=== PATIENT | male | born 2000 | race Hispanic/Latino ===

== ENCOUNTER 2024-05-28 06:36 | Emergency (ER) | payer OTHER, SELFPAY ==
--- OUTSIDE RECORDS SUMMARY | 2024-05-28 06:39 | XMS REPORT | Continuity of Care Document ---
Author Name Unknown Address [address] [facility] [address] [place] [address] [facility] Address [address] [facility] [address] [place] [address] Care Team Providers [employer] Cook Head Name Role Phone Guanako GAN, Ivy Primary Care Physician SONYA REYNA Attending Clinician Unavailable Sonya Reyna MD Attending Clinician [phone] Team, [facility] Health Maintenance Attending Clinicia n Unavailable Payers Payer Name Policy Type Policy Number Effective Date Expirati on Date Source [facility] [id number] 2019 00:00:00 Problems Condition Name Condition Details Condition Category Status Onset Date Resolution Date Last Treatment Date Treating Clinician Comments Source No known active problems No known active problems Disease [facility] Allergies, Adverse Reactions, Alerts Allergy Name Allergy Type Status Severity Reaction(s) Onset Date Inactive Date Treating Clinician Comments Source NO KNOWN ALLERGIE S Drug Class Active [facility] Social History Social Habit Start Date Stop Date Quantity Comments Source Sexual orientation [facility] Sex Assigned At 2000 00:00:00 2000 00:00:00 [facility] Smoking Status Start Date Stop Date Source Tobacco smoking consumption unknown [facility] Medications Ordered Medication Name Filled Medication Name Start Date Stop Date Current Medication? Ordering Clinician Indication Dosage Frequency Signature (SIG) Comments Components Source amoxicillin 500 mg capsule 01-29 00:00: 00 Yes 1mg Eduard Abraham ranitidine (ZANTAC) 150 mg tablet 2018-08 00:00: 00 Yes [id number] 150mg Take 1 tablet by mouth 2 (two) times daily. Follow up with your MD for further evaluation and treatment. [facility] ondansetron (ZOFRAN ODT) 4 mg disintegrat ing tablet 2018-08 00:00: 00 Yes [id number] 4mg Take 1 tablet by mouth every 8 (eight) hours as needed for Nausea and Vomiting (N/V). [facility] traMADol (ULTRAM) 50 mg tablet 2018-08 00:00: 00 Yes [id number] 50mg Take 1 tablet by mouth every 8 (eight) hours as needed for Pain (scale 4-6). [facility] ondansetron (ZOFRAN ODT) 4 mg disintegrat ing tablet 09-24 00:00: 00 Yes [id number] 4mg Take 1 tablet by mouth every 8 (eight) hours as needed for Nausea and Vomiting (N/V). [facility] oxymetazoli ne 0.05 % nasal spray 08-15 00:00: 00 Yes 1{spray } Use 1 Stearns in each nostril 2 (two) times daily. DISCARD AFTER 3 DAYS. USE MAY BE ADDICTIVE AFTER 4 DAYS USE. [facility] triamcinolo ne acetonide (TRIDERM) 0.1 % cream 02-14 00:00: 00 Yes Apply to area(s) 3 (three) times daily. [facility] albuterol (PROVENTIL) 5 mg/mL nebulizer solution 09-26 17:35: 37 Yes 2.5mg Inhale 2.5 mg every 4 (four) hours as needed for Wheezing or Shortness of Breath. [facility] LEVALBUTERO L HCL (XOPENEX INHALE) 09-26 17:35: 37 Yes Inhale. [facility] MONTELUKAST SODIUM (SINGULAIR ORAL) 09-26 17:35: 37 Yes Take by mouth. [facility] albuterol (PROVENTIL) 5 mg/mL nebulizer solution 09-26 11:35: 37 Yes 2.5mg Inhale 2.5 mg every 4 (four) hours as needed for Wheezing or Shortness of Breath. [facility] LEVALBUTERO L HCL (XOPENEX INHALE) 09-26 11:35: 37 Yes Inhale. [facility] MONTELUKAST SODIUM (SINGULAIR ORAL) 09-26 11:35: 37 Yes Take by mouth. [facility] Immunizations Ordered Immunization Name Filled Immunization Name Date Status Comments Source meningococcal MCV4P meningococcal MCV4P 00:00:00 Completed Eduard Abraham Tdap Tdap 2014-04-02 00:00:00 Completed Eduard Abraham DTaP DTaP 2002 00:00:00 Completed Eduard Abraham Hep B, adolescent or ped Hep B, adolescent or ped 2002 00:00:00 Completed Eduard Abraham Hib (PRP-OMP) Hib (PRP-OMP) 2002 00:00:00 Completed Eduard Abraham Pneumococcal conjugate P Pneumococcal conjugate P 2002 00:00:00 Completed Eduard Abraham IPV IPV 2002 00:00:00 Completed Eduard Abraham Hep B, adolescent or ped Hep B, adolescent or ped 2002 00:00:00 Completed Eduard Abraham Vital Signs Vital Name Observation Time Observation Value Comments S ource BP Systolic 2024-02-06 13:10:00 Joo Abraham BP Diastolic 2024-02-06 13:10:00 [facility] Abraham Weight Measured 2024-02-06 13:10:00 Eduard Abraham Height Measured 2024-02-06 13:10:00 Eduard Abraham Body Temperature 2024-02-06 13:10:00 Eduard Abraham Heart Rate 2024-02-06 13:10:00 Karen Abraham Respiratory Rate 2024-02-06 13:10:00 Eduard Abraham Respiratory Rate 2024-01-30 16:56:00 18.00 /min Eduard Abraham BP Systolic 2024-01-30 16:56:00 120 mm[Hg] Joo Abraham BP Diastolic 2024-01-30 16:56:00 100 mm[Hg] [facility] phen Michael Abraham Weight Measured 2024-01-30 16:56:00 155.00 pounds Eduard Abraham Height Measured 2024-01-30 16:56:00 65.50 inches Eduard Michael Abraham Body Temperature 2024-01-30 16:56:00 99.10 degrees Eduard Abraham Heart Rate 2024-01-30 16:56:00 74.00 /min Karne en Michael Abraham BP Systolic 2018-09-19 17:12:00 116 mm[Hg] Step hen Michael Abraham BP Diastolic 2018-09-19 17:12:00 77 mm[Hg] [facility]is phen Michael Abraham Weight Measured 2018-09-19 17:12:00 146.20 pounds Eduard Abraham Height Measured 2018-09-19 17:12:00 65.50 inches Eduard Abraham Body Temperature 2018-09-19 17:12:00 98.40 degrees Eduard Abraham Heart Rate 2018-09-19 17:12:00 68.00 /min Karen en Michael Abraham Respiratory Rate 2018-09-19 17:12:00 16.00 /min Eduard Abraham Encounters Start Date/Time End Date/Time Encounter Type Admission Type Attending [facility] Care Department Encounter ID Source 2024-02-06 00:00:00 2024-02-06 00:00:00 Outpatient Visit [facility] [id number] Eduard Abraham 2024-01-30 16:45:34 2024-01-30 16:45:34 Outpatient [facility] [id number] Eduard Abraham 2024-01-30 00:00:00 2024-01-30 00:00:00 Outpatient Visit [facility] [id number] Eduard Abraham 2023-07-18 23:46:00 2023-07-18 23:47:00 Emergency X SONYA REYNA [facility] [id number] [facility] 2023-07-18 23:46:00 2023-07-18 23:47:00 Emergency Sonya Reyna [facility] [id number] [facility] 2019-04-25 00:00:00 2019-04-25 00:00:00 Telephone Team, [facility] [id number] [facility] Notes Date/Time Note Provider Source Eduard Mckeon [facility]2024-06-18 00:00:00 Eduard Jeff [facility]
[2024-05-28] MEDS ORDERED: KETOROLAC 30 MG/ML INJ ONE (07:37)
[2024-05-28 07:40] LABS: Absolute Eosinophils 0.5 K/uL (0-0.5); Absolute Lymphocytes (CBC) 1.3 K/uL (0.7-4.9); Absolute Monocytes 0.9 K/uL (0.1-1.3); Absolute Neutrophil 5.4 K/uL (1.8-8.0); Basophils % 0.4 % (0-1.3); Eosinophils % 5.8 % (0-4.4); Hematocrit 42.2 % (39.6-49.0); Hemoglobin 13.8 g/dL (13.6-17.9); Lymphocytes % 15.9 % (15.3-44.8); MCH 26.7 pg (27.0-35.0); MCHC 32.8 g/dL (32.0-36.0); MCV 81.6 fL (80-100); MPV 8.4 fL (7.6-11.3); Monocytes % 10.7 % (3.3-12.3); Neutrophils % 67.2 % (41.7-73.7); Nucleated RBC Absolute Count 0.1 (0-0); Nucleated Red Blood Cells % 0.9 % (0-0); Platelets 216 thou/uL (152-406); RBC Red Blood Cell Count 5.17 M/uL (4.33-5.43); Red Cell Distribution Width 13.7 % (12.1-15.2)
[2024-05-28 07:51] LABS: ALT/SGPT 21 U/L (16-61); AST/SGOT 16 U/L (15-37); Albumin 3.8 g/dL (3.4-5.0); Albumin/Globulin Ratio 1.1 (1.1-1.8); Alkaline Phosphatase 90 U/L (45-117); Anion Gap 6.9 mEq/L (5.0-15.0); BUN Blood Urea Nitrogen 17 mg/dL (7-18); Bicarbonate 28 mEq/L (21-32); Bilirubin Direct 0.2 mg/dL (0-0.2); Bilirubin Indirect, Calculated 0.7 mg/dL (0.2-0.8); Bilirubin Total 0.9 mg/dL (0.2-1.0); Globulin 3.5 g/dL (2.3-3.5); Glomerular Filtration Rate 121 ml/min (=/>90); Glucose Level 93 mg/dL (74-106); Potassium 3.9 mEq/L (3.5-5.1); Protein, Total 7.3 g/dL (6.4-8.2); Sodium Level 138 mEq/L (136-145)
[2024-05-28 07:54] LABS: Troponin High Sensitivity < 3.0 pg/mL (<58.9)
--- NOTE | 2024-05-28 08:09 | RAD REPORT ---
Procedure: Chest Single View HISTORY: Chest pain COMPARISON: 2007 FINDINGS: The lungs appear clear of acute infiltrate. No significant pleural effusion noted. The heart is normal size. IMPRESSION: No acute abnormality is displayed.
[2024-05-28 08:28] LABS: Blood Morphology Comment NOT SEEN (NOT SEEN); Platelet Estimate ADEQ; White Blood Cell Scan OK (OK)
--- NOTE | 2024-05-28 08:59 | EDPHYS ---
Physician Documentation [facility] Name: Terry Garner Age: 24 yrs Sex: Male : 2000 Arrival Date: 05/28/2024 Time: 06:36 Bed 20 Private MD: ED Physician Hernandez De Santiago HPI: 05/28 09:26 This 24 yrs old Male presents to ER via Ambulatory with complaints of Chest rt Pain, Chest Tightness. 09:26 Patient presents to the ED with a chest pain for 2 days. Patient states that is worse rt when he moves. Worse with deep inspiration. Denies exertional component. Denies other acute complaints at this time, symptoms are mild in severity, no other aggravating or alleviating factors. Historical: - Allergies: 07:14 No Known Allergies; ap3 - Home Meds: 07:14 None [Active]; ap3 - PMHx: 07:14 Asthma; ap3 - Immunization history:: Client reports having NOT received the Covid vaccine. - Infectious Disease History:: Denies. - Social history:: Smoking status: Patient/guardian denies using tobacco. - Family history:: not pertinent. ROS: 09:26 Constitutional: Negative for fever, chills, and weight loss, Respiratory: Negative for rt shortness of breath, cough, wheezing, and pleuritic chest pain, Abdomen/GI: Negative for abdominal pain, nausea, vomiting, diarrhea, and constipation, MS/Extremity: Negative for injury and deformity, Skin: Negative for injury, rash, and discoloration, Neuro: Negative for headache, weakness, numbness, tingling, and seizure, 09:26 Cardiovascular: Positive for chest pain, Negative for edema, Exam: 09:26 Constitutional: This is a well developed, well nourished patient who is awake, alert, rt and in no acute distress. Head/Face: Normocephalic, atraumatic. Chest/axilla: Normal chest wall appearance and motion. Nontender with no deformity. No lesions are appreciated. Cardiovascular: Regular rate and rhythm with a normal S1 and S2. No gallops, murmurs, or rubs. Normal PMI, no JVD. No pulse deficits. Respiratory: Lungs have equal breath sounds bilaterally, clear to auscultation and percussion. No rales, rhonchi or wheezes noted. No increased work of breathing, no retractions or nasal flaring. Abdomen/GI: Soft, non-tender, with normal bowel sounds. No distension or tympany. No guarding or rebound. No evidence of tenderness throughout. Skin: Warm, dry with normal turgor. Normal color with no rashes, no lesions, and no evidence of cellulitis. MS/ Extremity: Pulses equal, no cyanosis. Neurovascular intact. Full, normal range of motion. Neuro: Awake and alert, GCS 15, oriented to person, place, time, and situation. Cranial nerves II-XII grossly intact. Motor strength 5/5 in all extremities. Sensory grossly intact. Cerebellar exam normal. Normal gait. 09:26 ECG was reviewed by the Attending Physician. Vital Signs: 07:12 BP 125 / 75; Pulse 72; Resp 17; Temp 98.8; Pulse Ox 100% ; Weight 68.04 kg; Pain 8/10; ap3 09:02 BP 112 / 69; Pulse 87; Resp 17; Temp 98.6; Pulse Ox 100% on R/A; ap3 07:12 Pain Scale: Adult ap3 MDM: 07:06 Medical Screening Exam initiated rt 09:26 Differential diagnosis: Chest wall pain, pneumonia, pneumothorax, CAD. HEART Score: rt History: Slightly Suspicious (0), ECG: Normal (0), Age: < or = 45 years (0), Risk Factors: No Risk Factors Known (0), Troponin: < or = 1 x Normal Limit (0), Total Score = 0. Data reviewed: vital signs, nurses notes, lab test result(s), EKG, radiologic studies. Consideration of Admission/Observation Escalation of care including admission/observation considered. Symptoms improving with Toradol, suspect of chest wall pain. Low heart score, no risk factors, given chronicity of symptoms, 1 set of enzymes is sufficient to rule out acute coronary syndrome.. I considered the following discharge prescriptions or medication management in the emergency department Medications were administered in the Emergency Department. See MAR. Independent interpretation of the following test(s) in the Emergency Department X-Ray: My interpretation is No consolidation seen on interpretation of x-ray images. Test considered but Not performed: CT: Low suspicion for PE, PE RC negative, CT angiogram not indicated to rule out pulmonary embolus. Counseling: I had a detailed discussion with the patient and/or guardian regarding the historical points, exam findings, and any diagnostic results supporting the discharge/admit diagnosis, lab results, radiology results, the need for outpatient follow up, to return to the emergency department if symptoms worsen or persist or if there are any questions or concerns that arise at home. Response to treatment: the patient's symptoms have markedly improved after treatment. 05/28 07:15 Order name: Basic Metabolic Panel; Complete Time: 08:10 rt 05/28 07:15 Order name: CBC with Diff; Complete Time: 08:34 rt 05/28 07:15 Order name: LFT's; Complete Time: 08:10 rt 05/28 07:15 Order name: Troponin HS; Complete Time: 08:10 rt 05/28 08:29 Order name: CBC Smear Scan; Complete Time: 08:34 EDMS 05/28 07:15 Order name: XRAY Chest (1 view); Complete Time: 08:10 rt 05/28 07:15 Order name: EKG; Complete Time: 07:16 rt 05/28 07:15 Order name: Cardiac monitoring; Complete Time: 07:17 rt 05/28 07:15 Order name: EKG - Nurse/Tech; Complete Time: 07:17 rt 05/28 07:15 Order name: IV Saline Lock; Complete Time: 07:26 rt 05/28 07:15 Order name: Labs collected and sent; Complete Time: 07:26 rt 05/28 07:15 Order name: O2 Per Protocol; Complete Time: 07:17 rt 05/28 07:15 Order name: O2 Sat Monitoring; Complete Time: 07:17 rt EC:26 Rate is 79 beats/min. Rhythm is regular, Normal Sinus Rhythm with No ectopy. QRS [place] rt is Normal. [place] interval is normal. QRS interval is normal. QT interval is normal. No Q waves. T waves are Normal. No ST changes noted. Interpreted by me. Administered Medications: 07:44 Drug: Ketorolac IVP 15 mg IVP once Route: IVP; Site: right antecubital; ap3 08:58 Follow up: Response: No adverse reaction ap3 Disposition Summary: 05/28/24 08:58 Discharge Ordered Notes: Location: Home rt Problem: new rt Symptoms: have improved rt Condition: Stable rt Diagnosis - Chest pain, unspecified rt Followup: rt - With: Private Physician - When: 2 - 3 days - Reason: Discharge Instructions: - Discharge Summary Sheet rt - Nonspecific Chest Pain, Adult rt Forms: - Work release form iw - Medication Reconciliation Form rt - Antibiotic Education rt - Prescription Opioid Use rt - Patient Portal Instructions rt - Leadership Thank You Letter rt Signatures: Dispatcher [employer] Lulú Neumann RN RN ap3 Hernandez De Santiago MD MD rt
--- NOTE | 2024-05-28 08:59 | ER ---
Nurse's Notes [facility] Name: Terry Garner Age: 24 yrs Sex: Male : 2000 Arrival Date: 05/28/2024 Time: 06:36 Bed 20 Private MD: Diagnosis: Chest pain, unspecified Presentation: 05/28 07:12 Chief complaint: Patient states: he started having chest pain approx 2 night ago, that ap3 is worse at night and improves throughout the day. patient denies any shortness of breath or nausea and vomiting. patient also complains of pain with movement. . patient currently rates his pain as an 8/10 on the pain scale. Coronavirus screen: At this time, the client does not indicate any symptoms associated with coronavirus-19. Ebola Screen: No symptoms or risks identified at this time. Initial Sepsis Screen: Does the patient meet any 2 criteria? No. Patient's initial sepsis screen is negative. Does the patient have a suspected source of infection? No. Patient's initial sepsis screen is negative. Risk Assessment: Do you want to hurt yourself or someone else? Patient reports no desire to harm self or others. Onset of symptoms was May 26, 2024. 07:12 Method Of Arrival: Ambulatory ap3 07:12 Acuity: ALDEN 2 ap3 Triage Assessment: 07:15 General: Appears in no apparent distress. Behavior is calm, cooperative, appropriate ap3 for age. Pain: Complains of pain in chest Pain currently is 8 out of 10 on a pain scale. Pain began 2-3 days ago. Neuro: Level of Consciousness is awake, alert, obeys commands, Oriented to person, place, time, situation, Appropriate for age. Cardiovascular: Reports chest pain, Patient's skin is warm and dry. Respiratory: Airway is patent Respiratory effort is even, unlabored, Respiratory pattern is regular, symmetrical. Historical: - Allergies: 07:14 No Known Allergies; ap3 - Home Meds: 07:14 None [Active]; ap3 - PMHx: 07:14 Asthma; ap3 - Immunization history:: Client reports having NOT received the Covid vaccine. - Infectious Disease History:: Denies. - Social history:: Smoking status: Patient/guardian denies using tobacco. - Family history:: not pertinent. Screenin:15 [facility] ED Fall Risk Assessment (Adult) History of falling in the last 3 months, ap3 including since admission No falls in past 3 months (0 pts) Confusion or Disorientation No (0 pts) Intoxicated or Sedated No (0 pts) Impaired Gait No (0 pts) Mobility Assist Device Used No (0 pt) Altered Elimination No (0 pt) Score/Fall Risk Level 0 - 2 = Low Risk Oriented to surroundings, Maintained a safe environment, Educated pt \T\ family on fall prevention, incl call for assistance when getting out of bed, Assessed \T\ reinforced patient's understanding of fall precautions, Hourly rounding (assess needs \T\ fall precautionary measures) done, Used ambulatory aids as needed (educated on \T\ assisted with), Used gait belt as appropriate. Abuse screen: Denies threats or abuse. Nutritional screening: No deficits noted. Tuberculosis screening: No symptoms or risk factors identified. Assessment: 07:16 Pain: Pain does not radiate. ap3 08:58 Reassessment: Patient and/or family updated on plan of care and expected duration. Pain ap3 level reassessed. Patient is alert, oriented x 3, equal unlabored respirations, skin warm/dry/pink. Vital Signs: 07:12 BP 125 / 75; Pulse 72; Resp 17; Temp 98.8; Pulse Ox 100% ; Weight 68.04 kg; Pain 8/10; ap3 09:02 BP 112 / 69; Pulse 87; Resp 17; Temp 98.6; Pulse Ox 100% on R/A; ap3 07:12 Pain Scale: Adult ap3 ED Course: 06:40 Patient arrived in ED. [email or web address] 06:59 Hernandez De Santiago MD is Attending Physician. rt 07:01 Lulú Rodriguez, RN is Primary Nurse. ap3 07:14 Triage completed. ap3 07:15 Arm band placed on right wrist. ap3 07:15 Patient maintains SpO2 saturation greater than 95% on room air. ap3 07:16 Client placed on continuous cardiac and pulse oximetry monitoring. NIBP monitoring ap3 applied. food supervisor on. Pulse ox on. NIBP on. 07:16 Patient has correct armband on for positive identification. Placed in gown. Bed in low ap3 position. Call light in reach. Side rails up X 1. 07:16 EKG done, by ED staff, reviewed by Hernandez De Santiago MD. ap3 07:27 Inserted saline lock: 20 gauge in right antecubital area, using aseptic technique. ap3 Blood collected. 08:04 XRAY Chest (1 view) In Process Unspecified. EDMS 09:10 No provider procedures requiring assistance completed. IV discontinued, intact, ap3 bleeding controlled, No redness/swelling at site. Pressure dressing applied. 09:11 Provided Education on: discharge instructions. ap3 Administered Medications: 07:44 Drug: Ketorolac IVP 15 mg IVP once Route: IVP; Site: right antecubital; ap3 08:58 Follow up: Response: No adverse reaction ap3 Medication: 09:11 VIS not applicable for this client. ap3 Outcome: 08:58 Discharge ordered by MD. rt 09:11 Discharged to home ambulatory, with family, ap3 09:11 Condition: good 09:11 Discharge instructions given to patient, Instructed on discharge instructions, follow up and referral plans. Demonstrated understanding of instructions, follow-up care, 09:11 Patient left the ED. ap3 Signatures: Dispatcher [employer] EDMS Lulú Rodriguez RN RN ap3 Holley Casey [email or web address] Hernandez De Santiago MD MD rt
[2024-05-28 11:27] VITALS: O2SAT 100
[2024-05-28 11:29] VITALS: BP 125/75; TEMP 98.8
--- NOTE | 2024-05-30 11:58 | EKG ---
Test Date: 2024-05-28 Test Time: 07:10:06 Licensed Embalmer Supervisor: ALP MEASUREMENT RESULTS: Intervals: Rate: 79 UT: 152 QRSD: 86 QT: 350 QTc: 401 [place]: P: 65 UT: 152 QRS: 88 T: 37 INTERPRETIVE STATEMENTS: Normal sinus rhythm with sinus arrhythmia Normal ECG No previous ECG available for comparison Electronically Signed On 05-30-24 11:53:36 CDT by Vipul Ureña
== END 2024-05-28 09:11 | disposition home or self-care (01) ==
LOC: ER 06:36
DX: R07.89 Other chest pain (principal); Z28.310 Unvaccinated for COVID-19
CPT/HCPCS: 36415; 71045; 80048; 80076; 84484; 85025; 93005; 96374; 99285